=== PATIENT | female | born 1980 ===

== ENCOUNTER → 2020-04-25 | Outpatient (CLI) | payer OTHER | LOC: LAB SHORT 13:42 → LAB EV 13:42 | DX: N39.0 Urinary tract infection, site not specified (principal) | CPT/HCPCS: 87086 ==

== ENCOUNTER → 2020-06-15 | Outpatient (CLI) | payer OTHER | END | disposition home or self-care (01) | LOC: LAB SHORT 09:03 → LAB EV 09:03 | DX: N39.0 Urinary tract infection, site not specified (principal) | CPT/HCPCS: 87077; 87086; 87186 ==